=== PATIENT | female | born 1965 | race Two or more races ===

== ENCOUNTER 2018-10-15 12:00 | Emergency (ER) | payer MEDICAID ==
[~2018-10-15] VITALS: Ht 167.6 cm; Wt 89.8 kg
[2018-10-15 12:16] VITALS: BP 132/90
[2018-10-15] MEDS ORDERED: methylPREDNISolone SOD SUCC 125 MG/2 ML VL IM ONE (12:45)
[2018-10-15] MEDS ORDERED: diphenhdrAMINE HCL 25 MG CAP PO ONE (12:45)
== END 2018-10-15 13:21 | disposition home or self-care (01) ==
LOC: ER 12:00
DX: L03.213 Periorbital cellulitis (principal)
CPT/HCPCS: 96372; 99283; J2930

== ENCOUNTER 2020-08-23 12:24 | Emergency (ER) | payer MEDICAID, OTHER ==
[~2020-08-23] VITALS: Ht 170.2 cm; Wt 113.4 kg
[2020-08-23 12:27] VITALS: BP 118/70
== END 2020-08-23 14:36 | disposition home or self-care (01) ==
LOC: ER 12:24
DX: S05.01XA Injury of conjunctiva and corneal abrasion without foreign body, right eye, initial encounter (principal); F17.210 Nicotine dependence, cigarettes, uncomplicated; X58.XXXA Exposure to other specified factors, initial encounter; Y93.89 Activity, other specified; Y92.89 Other specified places as the place of occurrence of the external cause; Y99.8 Other external cause status

== ENCOUNTER 2021-03-02 08:38 | Emergency (ER) | payer OTHER ==
[~2021-03-02] VITALS: Ht 170.2 cm; Wt 99.8 kg
[2021-03-02 10:41] VITALS: BP 124/85
[2021-03-02] MEDS ORDERED: SODIUM CHLORIDE 0.9% 1,000 ML IV ONE (11:30)
[2021-03-02] MEDS ORDERED: DOXYCYCLINE 100MG/250ML 250 ML IV ONE (11:30)
[2021-03-02] MEDS ORDERED: methylPREDNISolone SOD SUCC 125 MG/2 ML VL IV ONE (11:30)
[2021-03-02] MEDS ORDERED: cefTRIAXone 1GM/50ML D5W 50 ML IV ONE (11:30)
== END 2021-03-02 12:38 | disposition home or self-care (01) ==
LOC: ER 08:38
DX: J18.9 Pneumonia, unspecified organism (principal); F17.210 Nicotine dependence, cigarettes, uncomplicated; Z98.51 Tubal ligation status; Z20.822 Contact with and (suspected) exposure to COVID-19
CPT/HCPCS: 36415; 71045; 87426; 96365; 96368; 96375; 99284; J0696; J2930; J3490; J7030